=== PATIENT | female | born 1985 | race African-American/Black ===

== ENCOUNTER 2017-06-23 00:06 | Emergency (ER) | payer MEDICAID ==
[~2017-06-23] VITALS: Ht 154.9 cm; Wt 77.1 kg
[~2017-06-23 00:06] MED LIST: ZOFRAN4 MG ORAL
[2017-06-23 00:40] VITALS: BP 132/85
[2017-06-23] MEDS ORDERED: PredniSONE 20mg tab ORAL ONE (01:00)
[2017-06-23] MEDS ORDERED: RANITIDINE HCL150 MG ORAL (01:57)
[2017-06-23] MEDS ORDERED: BENADRYL25 MG ORAL (01:57)
[2017-06-23] MEDS ORDERED: PREDNISONE20 MG ORAL (01:57)
[2017-06-23 02:00] VITALS: BP 133/81
--- NOTE | 2017-06-23 05:47 | Emergency Room Report ---
History of Present Illness General Chief Complaint: Eye Problems Source: Patient, Medical Record Present Illness HPI Patient presents with complaints of eye irritation and itching this started back on Friday patient also feels some discomfort to the left eye now Patient reported initially decrease in vision However this is secondary to some of the swelling after clearing her eyes patient is able to see denies any fevers or chills denies any obvious trauma Denies any medications Allergies: Coded Allergies: No Known Allergies (Unverified , 03/03/16) Patient History Past Medical History: see triage record Pertinent Family History: none Last Menstrual Period: 05/25/17 Now: No : 0 Para: 0 Reviewed Nursing Documentation: PMH: Agreed, PSxH: Agreed Nursing Documentation-PMH Hx Gastrointestinal Problems: Yes - gastritis Hx Neurological Problems: Yes - vertigo Review of Systems All Other Systems: negative except mentioned in HPI Physical Exam Vital Signs Date Time Temp Pulse Resp B/P Pulse Ox O2 Delivery O2 Flow Rate FiO2 06/23/17 00:28 98.1 82 15 132/85 98 Room Air Sp02 EP Interpretation: reviewed, normal General Appearance: well appearing, no apparent distress Head: normocephalic, atraumatic Eyes: bilateral eye EOMI, bilateral eye PERRL, bilateral eye other - No hyphema , there is some mild conjunctival erythema bilaterally, the right orbit does show edematous findings ENT: normal pharynx Neck: full range of motion, supple Respiratory: lungs clear Cardiovascular #1: regular rate, rhythm, no edema Gastrointestinal: non tender, soft Musculoskeletal: normal inspection Neurologic: alert, oriented x3, responsive, 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 Skin: other - Along with the edema in the orbit there is some mild irritation to the lower eyelid as well Lymphatic: no adenopathy Medical Decision Making Diagnostic Impression: Primary Impression: allergic reaction ER Course Given the appearance and the general presentation This consideration for allergic reaction, possible insect bite or abrasion Patient is initiated on steroids and anti-inflammatory medicine and requires close outpatient followup Last Vital Signs Date Time Temp Pulse Resp B/P Pulse Ox O2 Delivery O2 Flow Rate FiO2 06/23/17 02:00 98.1 85 18 133/81 96 Room Air Status: improved Disposition: HOME, SELF-CARE Condition: Improved Scripts Ranitidine Hcl* (ZANTAC*) 150 Mg Tablet 150 MG ORAL TWICE A DAY, #30 TAB Prov: GREG GRUBER D.O. 06/23/17 Diphenhydramine Hcl* (BENADRYL*) 25 Mg Capsule 25 MG ORAL Q6H Y for Itching, #20 CAP Prov: GREG GRUBER D.O. 06/23/17 Prednisone* (PREDNISONE*) 20 Mg Tablet 20 MG ORAL BID, #10 TAB Prov: GREG GRUBER D.O. 06/23/17 Referrals: [facility]ERR[facility] (PCP) Patient Instructions: Allergies, [id number] Additional Instructions: Patient is provided with the discharge instructions notified to follow up with primary doctor in the next 2-3 days otherwise return to the er with any worsening symptoms. Please note that this report is being documented using [employer] technology. This can lead to erroneous entry secondary to incorrect interpretation by the dictating instrument. GREG GRUBER D.O. Jun 23, 2017 05:47
== END 2017-06-23 02:00 | disposition home or self-care (01) ==
LOC: EMR 00:50
DX: T78.40XA Allergy, unspecified, initial encounter (principal); X58.XXXA Exposure to other specified factors, initial encounter; Y92.9 Unspecified place or not applicable
CPT/HCPCS: 99284